=== PATIENT | female | born 1995 | race Asian ===

== ENCOUNTER 2019-11-13 14:15 | Emergency (ER) | payer BC ==
[2019-11-13 14:51] VITALS: BP 111/80
[2019-11-13 15:01] LABS: Influenza A Molecular Negative (Negative); Influenza B Molecular Negative (Negative)
--- NOTE | 2019-11-13 15:03 | UC ---
Respiratory Complaint HPI - HPI Summary HPI Summary: The patient is a 24-year-old female with a 2-3 day history of nasal congestion and mild cough and mild postnasal drip as well as malaise and myalgias. She has not been febrile. She denies any chills. She denies any chest pain or shortness of breath. She has no nausea vomiting or diarrhea. She has no UTI symptoms. - History of Current Complaint Chief Complaint: UCGeneralIllness Stated Complaint: BODYACHES COUGH FATIGUE Time Seen by Provider: 11/13/19 14:38 Hx Obtained From: Patient Hx Last Menstrual Period: unk Onset/Duration: Gradual Onset, Lasting Days Timing: Constant Severity Initially: Mild Severity Currently: Mild Pain Intensity: 2 Pain Scale Used: 0-10 Numeric Character: Cough: Nonproductive Aggravating Factors: Nothing Alleviating Factors: Nothing Associated Signs And Symptoms: Positive: Nasal Congestion - Allergies/Home Medications Allergies/Adverse Reactions: Allergies Allergy/AdvReac Type Severity Reaction Status Date / Time No Known Allergies Allergy Verified 11/13/19 14:51 PMH/Surg Hx/FS Hx/Imm Hx Previously Healthy: Yes - Surgical History Surgical History: None - Family History Known Family History: Positive: Unknown Family History: She is adopted and unaware of her FHx - Social History Alcohol Use: Occasionally Substance Use Type: None Smoking Status (MU): Never Smoked Tobacco Review of Systems All Other Systems Reviewed And Are Negative: Yes Constitutional: Positive: Fatigue Skin: Positive: Negative Eyes: Positive: Negative ENT: Positive: Nasal Discharge, Sinus Congestion Respiratory: Positive: Cough Cardiovascular: Positive: Negative Gastrointestinal: Positive: Negative Genitourinary: Positive: Negative Motor: Positive: Negative Neurovascular: Positive: Negative Musculoskeletal: Positive: Negative Neurological/Mental Status: Positive: Negative Psychological: Positive: Negative Physical Exam Triage Information Reviewed: Yes Appearance: Well-Appearing, No Pain Distress, Well-Nourished Vital Signs: Initial Vital Signs Temp 98 F 11/13/19 14:46 Pulse 72 11/13/19 14:46 Resp 14 11/13/19 14:46 BP 111/80 11/13/19 14:46 Pulse Ox 100 11/13/19 14:46 Vital Signs Reviewed: Yes Eyes: Positive: Conjunctiva Clear ENT: Positive: Hearing grossly normal, Pharynx normal, Nasal congestion, TMs normal. Negative: Nasal drainage, TM red, Tonsillar swelling, Tonsillar exudate , Trismus, Muffled voice, Hoarse voice Dental Exam: Normal Neck: Positive: Supple, Nontender, No Lymphadenopathy Respiratory: Positive: Lungs clear, Normal breath sounds, No respiratory distress Cardiovascular: Positive: RRR, No Murmur Bowel Sounds: Positive: Present Musculoskeletal: Positive: ROM Intact, No Edema Neurological: Positive: Alert Psychological Exam: Normal Skin Exam: Normal Diagnostics - Laboratory Lab Results: influenza (-) Respiratory Course/Dx - Differential Dx/Diagnosis Provider Diagnosis: Viral URI with cough Discharge ED - Sign-Out/Discharge Documenting (check all that apply): Patient Departure All imaging exams completed and their final reports reviewed: No Studies - Discharge Plan Condition: Stable Disposition: HOME Patient Education Materials: Upper Respiratory Infection (ED) Additional Instructions: influenza test negative return for new or worsening symptoms recheck in one week if not better - Billing Disposition and Condition Condition: STABLE Disposition: Home
== END 2019-11-13 15:14 | disposition home or self-care (01) ==
LOC: UCEAST 14:15
DX: J06.9 Acute upper respiratory infection, unspecified (principal); R05 Cough; R09.82 Postnasal drip
CPT/HCPCS: 99211; G0463